=== PATIENT | female | born 2000 | race Caucasian/White ===

== ENCOUNTER 2023-05-08 13:52 | Emergency (ER) | payer OTHER ==
[~2023-05-08] VITALS: Ht 165.1 cm; Wt 54.5 kg
[2023-05-08 13:56] VITALS: BP 118/68; TEMP 97.5
[2023-05-08] MEDS ORDERED: CRUTCHES MC (14:09)
[2023-05-08] MEDS ORDERED: NORCO 325 MG-51 TAB PO (14:50)
[2023-05-08] MEDS ORDERED: MOTRIN 800800 MG/TAB PO (14:50)
[2023-05-08 14:56] VITALS: PULSE 98
== END 2023-05-08 14:56 | disposition home or self-care (01) ==
LOC: COL.ER 13:52
DX: S83.91XA Sprain of unspecified site of right knee, initial encounter (principal); X50.1XXA Overexertion from prolonged static or awkward postures, initial encounter; Y93.02 Activity, running